=== PATIENT | female | born 1955 | race Caucasian/White ===

== ENCOUNTER → 2017-03-11 | Outpatient (CLI) | payer OTHER, MEDICARE ==
[2015-09-08 20:25] VITALS: BP 148/78
[~2017-03-11] MED LIST: ALBU6.7H IH; AMOX875T PO; CLON1TAB3 PO; ESCI20TA PO; FENO134C PO; GABA-586 PO; LEVO112T4 PO; MELO15TA23 PO; METF500T9 PO; METH500T7 PO; MONT10TA6 PO; PRED20TA PO; TOPI100T8 PO
--- NOTE | 2017-03-11 15:34 | RAD ---
Examination: 3 views of the left knee History: History of left knee pain, right foot pain Comparison: None available Findings: The alignment of the left knee joint grossly appears unremarkable. There is no acute fracture or dislocation identified. Minimal knee joint effusion identified. Mild joint space loss identified in the medial, lateral, patellar femoral compartments. Osseous demineralization limits evaluation. Impression: Mild degenerative changes knee joint.
--- NOTE | 2017-03-11 15:38 | RAD ---
Examination: 3 views of the chest History: History of right foot pain Comparison: 07/11/2015 Findings: Osseous demineralization limits evaluation Tarsal bones are well aligned. Mild degenerative changes of the tarsometatarsal joints. Moderate to severe degenerative changes identified in the first metatarsophalangeal joint. Mild degenerative changes identified in the interphalangeal joint. There is no obvious acute fracture identified. Impression: Degenerative changes right foot, most in the first middle phalangeal joint.
== END | disposition home or self-care (01) ==
LOC: DXRADRC 14:46
PROVIDERS: ATTEND Physician Assistant
DX: M17.12 Unilateral primary osteoarthritis, left knee (principal); M19.071 Primary osteoarthritis, right ankle and foot
CPT/HCPCS: 73562; 73630

== ENCOUNTER → 2017-10-21 | Outpatient (CLI) | payer OTHER, MEDICARE ==
[2015-09-08 20:25] VITALS: BP 148/78
[~2017-10-21] MED LIST changes: -ESCI20TA PO; +ESCITALOPRAM OX20 MG PO
--- NOTE | 2017-10-21 08:55 | EKG ---
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
--- NOTE | 2017-10-21 09:08 | RAD ---
2 view CXR: Clinical indications: COPD. Dyspnea.. Comparison: Chest CT dated September 08, 2015 and chest x-ray dated September 12, 2015 Findings: There is a nodule projected over the right lateral lower lung field which corresponds to a calcification of the right breast seen on the previous chest CT. No acute lung infiltrate or pleural effusion or pulmonary edema or lung mass or pneumothorax is seen. The heart size, pulmonary vasculature, mediastinum and both elida are unremarkable. Old healed left clavicular fracture is seen. There is a new moderate compression fracture of a midthoracic vertebral body. Impression: No acute lung infiltrate. New moderate compression fracture of a midthoracic vertebral body since 2015. Clinical correlation is recommended. When the chest CT from September 08, 2015 was reviewed to demonstrate the calcified nodule seen on the chest x-ray, another asymmetric nodule of the right breast was noted laterally. Therefore, recommend bilateral mammography if this has not been performed recently. No mammogram has been performed at this facility..
--- NOTE | 2017-10-21 09:11 | RAD ---
Limited abdomen ultrasound study History: Right upper quadrant and epigastric pain for a couple of years which is intermittent. However, the pain is more constant the last couple of months. Findings: The gallbladder is surgically absent. The extra hepatic bile duct measures 5 mm in caliber which is normal. The tail of the pancreas is obscured due to overlying bowel gas. The rest of the pancreas is homogeneous without focal enlargement. The main pancreatic duct measures 1.7 mm in caliber which is normal. The liver measures 16.8 cm in length which is normal. The liver is homogeneous. The length of the right kidney is 10.6 cm. No hydronephrosis or renal mass or perinephric fluid collection is seen on this side. IMPRESSION: No significant abnormality is evident.
== END | disposition home or self-care (01) ==
LOC: US 07:45
PROVIDERS: ATTEND Internal Medicine Gastroenterology
DX: J44.9 Chronic obstructive pulmonary disease, unspecified (principal); R10.11 Right upper quadrant pain; R10.13 Epigastric pain; M48.54XA Collapsed vertebra, not elsewhere classified, thoracic region, initial encounter for fracture; N64.89 Other specified disorders of breast; F17.200 Nicotine dependence, unspecified, uncomplicated; Z90.49 Acquired absence of other specified parts of digestive tract
CPT/HCPCS: 71020; 76705; 93005

== ENCOUNTER → 2017-12-09 | Outpatient (CLI) | payer OTHER, MEDICARE ==
[2015-09-08 20:25] VITALS: BP 148/78
== END | disposition home or self-care (01) ==
LOC: SURG 12:36
PROVIDERS: ATTEND Anesthesiology
DX: S22.000A Wedge compression fracture of unspecified thoracic vertebra, initial encounter for closed fracture (principal); E11.9 Type 2 diabetes mellitus without complications; F17.210 Nicotine dependence, cigarettes, uncomplicated; X58.XXXA Exposure to other specified factors, initial encounter; Y93.89 Activity, other specified; Y92.89 Other specified places as the place of occurrence of the external cause; Y99.8 Other external cause status
CPT/HCPCS: 99204

== ENCOUNTER → 2018-02-06 | Outpatient (CLI) | payer OTHER, MEDICARE ==
[2015-09-08 20:25] VITALS: BP 148/78
--- NOTE | 2018-02-06 14:29 | RAD ---
2 views of the Chest 02/06/2018 2:00 AM Indication: CHEST CONGESTION, COUGH Comparison: Chest radiograph October 21, 2017 Findings: No pneumothorax or pleural effusion is identified. Diffuse interstitial coarsening is stable. No new focal infiltrate is seen. Heart size is normal. Mid thoracic compression deformity stable. No acute osseous changes are identified. Impression: No evidence of acute cardiopulmonary process or acute change from prior study is identified
== END | disposition home or self-care (01) ==
LOC: PMG 14:07
PROVIDERS: ATTEND Physician Assistant
DX: M48.54XD Collapsed vertebra, not elsewhere classified, thoracic region, subsequent encounter for fracture with routine healing (principal); R09.89 Other specified symptoms and signs involving the circulatory and respiratory systems; R05 Cough
CPT/HCPCS: 71046

== ENCOUNTER → 2019-01-26 | Outpatient (CLI) | payer OTHER, MEDICARE ==
[2015-09-08 20:25] VITALS: BP 148/78
[~2019-01-26] MED LIST changes: +ALBU2.5V8 IH; -ALBU6.7H IH; +CLON1TAB11 PO; -CLON1TAB3 PO; +IOHEXOL 240 MG/ML 50ML VIAL. ONE; +IOHEXOL 240 MG/ML 50ML VIAL. PO ONE; +IOHEXOL 300 MG/ML 75 ML VIAL. IV ONE
[2019-01-26 12:12] LABS: CREATININE 0.8 mg/dL (0.6-1.0); GFR 72.2
--- NOTE | 2019-01-26 13:05 | RAD ---
CT ABD PELV W/ORAL IV CONTRAST Indication: Left upper quadrant abdominal pain. Exposure: One or more of the following individualized dose reduction techniques were utilized for this examination: 1. Automated exposure control 2. Adjustment of the mA and/or kV according to patient size 3. Use of iterative reconstruction technique. Technique: Intravenous contrast was given. Oral contrast was given. No prior study for comparison Lung bases are clear. Liver and spleen unremarkable. Pancreas unremarkable. No adrenal mass. Hypodense left renal lesion, measures 3 Hounsfield units and 3.5 cm diameter, compatible with a cyst. Small subcentimeter low-density lesion of the right kidney is too small to characterize, may also represent a cyst. No hydronephrosis. Gallbladder surgically absent. Mild aortic calcification without evidence of aneurysm. No significant lymph node enlargement. No significant small bowel distention. Question of mild wall thickening of loops of distal ileum. No inflammatory stranding in the mesenteric fat. No evidence of acute colitis. Appendix appears normal. No significant ascites or pneumoperitoneum. Evaluation of the pelvis is limited by metal artifact from left hip replacement. Mild urinary bladder wall thickening. Mild degenerative changes of the spine greatest at the lumbosacral junction. There is a left hip replacement. No evidence of destructive bone lesion. Osteolytic lesion of the T12 vertebral body compatible with a hemangioma. IMPRESSION: 1. Question mild wall thickening of distal small bowel, could indicate a nonspecific enteritis or inflammatory bowel disease. Note there is no corresponding inflammatory stranding in the adjacent fat however. 2. Mild urinary bladder wall thickening, correlate for cystitis. Electronically signed by: Juan Ivy MD (01/26/2019 1:02 PM) [id number]
== END | disposition home or self-care (01) ==
LOC: CT 11:20
PROVIDERS: ATTEND Internal Medicine Gastroenterology
DX: M89.58 Osteolysis, other site (principal); I70.0 Atherosclerosis of aorta; N28.9 Disorder of kidney and ureter, unspecified; Z96.642 Presence of left artificial hip joint
CPT/HCPCS: 36415; 74177; 82565; 84520; Q9967

== ENCOUNTER → 2019-02-09 | Outpatient (CLI) | payer OTHER, MEDICARE, MEDICAID ==
[2015-09-08 20:25] VITALS: BP 148/78
[~2019-02-09] MED LIST changes: -IOHEXOL 240 MG/ML 50ML VIAL. ONE; -IOHEXOL 240 MG/ML 50ML VIAL. PO ONE; -IOHEXOL 300 MG/ML 75 ML VIAL. IV ONE
--- NOTE | 2019-02-09 16:48 | RAD ---
SMALL BOWEL SERIES History: Epigastric pain, left upper quadrant pain Comparison: January 26, 2019 CT abdomen pelvis exam Findings: Technical Service Specialist radiograph demonstrates nonobstructive bowel gas pattern. There has been cholecystectomy. There is left hip arthroplasty. There is normal transit of contrast through the small bowel, seen in segments of the colon by 90 minutes. No defined stricture is identified. No discrete small bowel wall thickening is confidently identified. Impression: 1. No focal stricture or significant small bowel wall thickening is identified by this exam. Electronically signed by: Tolu Coronel MD (02/09/2019 4:45 PM) [id number]
== END | disposition home or self-care (01) ==
LOC: DXRAD 08:05
PROVIDERS: ATTEND Internal Medicine Gastroenterology
DX: R10.12 Left upper quadrant pain (principal); Z90.49 Acquired absence of other specified parts of digestive tract; Z96.642 Presence of left artificial hip joint
CPT/HCPCS: 74250